=== PATIENT | male | born 1955 | race Hispanic/Latino ===

== ENCOUNTER 2024-12-17 10:22 | Outpatient (CLI) | payer MEDICARE, SELFPAY | END 2024-12-17 10:23 | disposition home or self-care (01) | LOC: MICIMG 10:23 | PROVIDERS: PCP Internal Medicine Endocrinology, Diabetes & Metabolism; Visit Provider Internal Medicine Endocrinology, Diabetes & Metabolism | DX: E04.2 Nontoxic multinodular goiter (principal) | CPT/HCPCS: 76536 ==

== ENCOUNTER 2025-10-15 09:42 | Outpatient (CLI) | payer MEDICARE, SELFPAY ==
--- OUTSIDE RECORDS SUMMARY | 2025-10-15 10:02 | XMS_ITS | Clinical Summary ---
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 06/11/2015 Active finasteride (PROSCAR) 5 MG tablet Take 1 tablet (5 mg total) by mouth daily. 07/28/2024 Active fluticasone propionate (FLONASE) 50 MCG/ACT nasal spray 1 spray by Each Nostril route 2 (two) times daily. 08/24/2024 Active levothyroxine (SYNTHROID) 75 MCG tablet Take 1 tablet (75 mcg total) by mouth every morning. 08/25/2024 Active tamsulosin (FLOMAX) 0.4 MG Cap Take 1 capsule (0.4 mg total) by mouth daily. 08/01/2024 Active Social History Tobacco Use Types Packs/Day Years Used Date Smoking Tobacco: Never Sex and Gender Information Value Date Recorded Sex Assigned at Male 11/27/2024 7:48 AM [employer] Legal Sex Male 10:47 PM CDT Gender Identity Not on file Sexual Orientation Not on file Last Filed Vital Signs Vital Sign Reading Time Taken Comments Blood Pressure 152/92 10/24/2024 5:00 PM [employer] Pulse 61 10/24/2024 5:00 PM [employer] Temperature 36.7 C (98 F) 10/24/2024 1:19 PM [employer] Respiratory Rate 16 10/24/2024 5:00 PM [employer] Oxygen Saturation 99% 10/24/2024 5:00 PM [employer] Inhaled Oxygen Concentration - - Weight 79.4 kg (175 lb) 10/24/2024 1:19 PM [employer] Height 167.6 cm (5' 6) 10/24/2024 1:19 PM [employer] Body Mass Index 28.25 10/24/2024 1:19 PM [employer] Plan of Treatment Health Maintenance Due Date Last Done Comments Hepatitis C 1975 Hepatitis A Vaccines (1 of 2 - Risk 2-dose series) 1976 RSV Immunization or 60+ Years (1 - Risk 60-74 years 1-dose series) 2017 Colorectal Cancer Screening Colonoscopy (10 Years) 05/20/2019 05/20/2009 Annual Medicare Wellness Visit 2022 DTaP, Tdap and Td Vaccines (2 - Td or Tdap) 06/04/2024 06/04/2014 COVID-19 Vaccine ( season) 2025 07/17/2024, 10/18/2023, 08/23/2022, Additional history exists Influenza Adult (#1) 2025 07/17/2024, 08/19/2023, 07/28/2022, Additional history exists Zoster Vaccines Completed 08/08/2023, 04/18, 05/08/2023 Pneumococcal Vaccine: 50+ Years Completed 08/19/2023, 04/02/2021, 11/07/2014 Meningococcal B Vaccine Aged Out No l onger eligible based on patient's age to complete this topic Meningococcal Vaccine Aged Out No neli page eligible based on patient's age to complete this topic RSV Immunizations Under 20 Months Aged Out No longer eligible based on patient's age to complete this topic Insurance MEDICARE Care Teams 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
[2025-10-15 11:02] LABS: Thyroid Stimulating Hormone 1.200 uIU/mL (0.465-4.680)
== END 2025-10-15 09:43 | disposition home or self-care (01) ==
PROVIDERS: Visit Provider Internal Medicine Endocrinology, Diabetes & Metabolism
DX: E03.9 Hypothyroidism, unspecified (principal)
CPT/HCPCS: 36415; 84443